=== PATIENT | male | born 1995 | race Caucasian/White ===

== ENCOUNTER 2017-06-25 19:57 | Emergency (ER) | payer SELFPAY ==
[~2017-06-25] VITALS: Ht 177.8 cm; Wt 74.8 kg
--- NOTE | 2017-06-25 20:02 | ER Report ---
History and Physical Time Seen By MD: 19:58 HPI/ROS CHIEF COMPLAINT: Ill 3 days HISTORY OF PRESENT ILLNESS: 22-year-old male presents ambulatory to the ER complaining of illness which involves coughing, body aches and fever for 3 days. Patient denies history of asthma or allergies. Patient notes difficulty breathing. His chest feels heavy. He's had intermittent productive cough of primary clear sputum. Patient denies nausea or vomiting. Patient notes a mild headache. He denies photophobia or stiff neck. REVIEW OF SYSTEMS: Respiratory: As above Cardiovascular: No chest pain, no palpitations. Gastrointestinal: No vomiting, no abdominal pain. Musculoskeletal: No back pain. Allergies: Coded Allergies: No Known Drug Allergies (Unverified , 06/25/17) Home Meds Active Scripts Promethazine Hcl (PROMETHAZINE HCL) 25 Mg Tablet, 25 MG PO Q4H Y for cough and nausea suppression, #14 TAB Prov:CLAUDIO DAN DO 06/25/17 Hydrocodone Bit/Acetaminophen (NORCO 5-325 TABLET) 1 Each Tablet, 1 EACH PO Q4H Y for pain or cough suppression, #10 TAB Prov:SYCLAUDIO Canelo DO 06/25/17 Amoxicillin (AMOXICILLIN) 875 Mg Tablet, 1 TAB PO Q12H for infection, #14 TAB Prov:CLAUDIO DAN DO 06/25/17 Reviewed Nurses Notes: Yes Old Medical Records Reviewed: Yes Constitutional Vital Sign - Last 24 Hours 06/25/17 06/25/17 06/25/17 06/25/17 20:01 20:01 20:27 20:57 Temp 98.6 Pulse 101 96 101 Resp 24 B/P (MAP) 146/96 (113) 146/96 Pulse Ox 99 98 99 O2 Delivery Room Air 06/25/17 06/25/17 21:07 21:11 Pulse 78 B/P (MAP) 143/92 (109) 143/92 (109) Physical Exam Vital signs stable, afebrile, pulse ox normal General Appearance: The patient is alert, has no immediate need for airway protection and no current signs of toxicity. Slightly pale appearing, skin warm and dry HEENT: Pupils equal and round no injection. TMs normal, oropharynx with moderate erythema, tonsillar hypertrophy noted, no exudate Respiratory: Chest is non tender, lungs are clear to auscultation. No wheezing or rails Cardiac: regular rate and rhythm Gastrointestinal: Abdomen is soft and non tender, no masses, bowel sounds normal. Musculoskeletal: Neck: Neck is supple and non tender. Extremities have full range of motion and are non tender. Skin: No rashes or lesions. DIFFERENTIAL DIAGNOSIS: After history and physical exam differential diagnosis was considered for adult fever including but not limited to viral syndromes including influenza, urinary tract infection, strep pharyngitis, pneumonia and sepsis. Medical Decision Making Data Points Laboratory Hematology Test 06/25/17 20:01 Influenza Virus Type A (PCR) Negative (NEGATIVE) Influenza Virus Type B (PCR) Negative (NEGATIVE) Chemistry Test 06/25/17 20:01 Influenza Virus Type A (PCR) Negative (NEGATIVE) Influenza Virus Type B (PCR) Negative (NEGATIVE) ED Course/Re-evaluation ED Course Patient was minute to an examination room. H&P was done. The differential diagnoses was considered. On clinical examination. Patient has an erythematous throat with tonsillar hypertrophy without exudate. He appears clinically to have influenza A rapid influenza swab is negative. Patient will be treated for acute pharyngitis with amoxicillin. He is given Phenergan and [place] for symptom management. Management. He is advised to continue ibuprofen 600 mg 3 times daily and increase his fluid intake. Patient advised to follow- up with primary care if unimproved in 3-5 days. Decision to Disposition Date: Jun 25, 2017 Decision to Disposition Time: 20:54 Depart Departure Latest Vital Signs Vital Signs Date Time Temp Pulse Resp B/P (MAP) Pulse Ox O2 Delivery O2 Flow Rate FiO2 06/25/17 21:11 78 143/92 (109) 06/25/17 20:57 99 06/25/17 20:01 98.6 24 Room Air Impression: Primary Impression: Acute pharyngitis Condition: Improved Disposition: HOME OR SELF-CARE Referrals: AMY LOUISE MD New Scripts Promethazine Hcl (PROMETHAZINE HCL) 25 Mg Tablet 25 MG PO Q4H Y for cough and nausea suppression, #14 TAB Prov: CLAUDIO DAN DO 06/25/17 Hydrocodone Bit/Acetaminophen (NORCO 5-325 TABLET) 1 Each Tablet 1 EACH PO Q4H Y for pain or cough suppression, #10 TAB Prov: CLAUDIO DAN DO 06/25/17 Amoxicillin (AMOXICILLIN) 875 Mg Tablet 1 TAB PO Q12H for infection, #14 TAB Prov: CLAUDIO DAN DO 06/25/17 Patient Instructions: Pharyngitis (ED), Upper Respiratory Infection (ED) Additional Instructions: Take ibuprofen 200 mg 3-4 tablets 3 times a day with food Drink plenty of fluids Follow-up with primary care if unimproved in 3-5 days Problem Qualifiers Primary Impression: Acute pharyngitis Pharyngitis/tonsillitis etiology: unspecified etiology Qualified Codes: J02.9 - Acute pharyngitis, unspecified CLAUDIO DAN DO Jun 25, 2017 20:02
[2017-06-25] MEDS ORDERED: AMOX875T60 PO (20:57)
[2017-06-25] MEDS ORDERED: PROM-110 PO (20:57)
[2017-06-25] MEDS ORDERED: HYDR-4309 PO (20:57)
[2017-06-25] MEDS ORDERED: AMOXICILLIN 500 MG CAP PO ONE (21:00)
[2017-06-25] MEDS ORDERED: PROMETHAZINE HCL 25 MG TAB TH 2 TAB/BOTTLE PO ONE (21:00)
[2017-06-25] MEDS ORDERED: ACET/HYDROC 5/325MG TH ER ONLY 2 TAB/BOTTLE PO ONE (21:00)
[2017-06-25 21:11] VITALS: BP 143/92
== END 2017-06-25 21:11 | disposition home or self-care (01) ==
LOC: ER 20:18
DX: J02.9 Acute pharyngitis, unspecified (principal)
CPT/HCPCS: 87502; 99282